=== PATIENT | female | born 2000 | race Caucasian/White ===

== ENCOUNTER → 2024-10-11 | Outpatient (CLI) | payer OTHER, SELFPAY ==
[2024-10-11 16:46] LABS: T4 (Thyroxine) 8.2 mcg/dL (4.5-10.9)
[2024-10-11 16:48] LABS: Thyroid Stimulating Hormone 1.16 uIU/mL (0.55-4.78)
== END | disposition home or self-care (01) ==
LOC: COPL 14:53
PROVIDERS: PCP Family Medicine; Referring Provider Nurse Practitioner; Visit Provider Nurse Practitioner
DX: Z00.00 Encounter for general adult medical examination without abnormal findings (principal)
CPT/HCPCS: 36415; 84436; 84443